=== PATIENT | female | born 1970 | race Caucasian/White ===

== ENCOUNTER 2018-06-14 11:07 | Emergency (ER) | payer BC ==
[~2018-06-14] VITALS: Ht 157.5 cm; Wt 47.2 kg
[~2018-06-14 11:07] MED LIST: Cipro PO; Vicodin,Norco 5/325 PO
[2018-06-14 12:10] LABS: HEMATOCRIT 37.3 % (36.0-46.0); HEMOGLOBIN 12.8 G/DL (11.9-15.5); MCH 30.8 PG (29.0-34.0); MCHC 34.3 G/DL (30.0-36.0); MCV 89.7 FL (83-99); PLATELET COUNT 198 K/uL (156-360); RBC DIS.WIDTH-CV 12.2 % (11.8-14.6); RBC DIS.WIDTH-SD 39.9 % (39-53); RED BLOOD COUNT 4.16 M/uL (3.80-5.20); WHITE BLOOD COUNT 10.2 K/uL (4.1-10.2)
[2018-06-14 12:23] LABS: CHLORIDE 107 mEq/L (99-109); POTASSIUM 3.7 mEq/L (3.7-5.4); SODIUM 142 mEq/L (136-147)
[2018-06-14 12:24] LABS: GLUCOSE 143 mg/dL (70-99)
[2018-06-14 12:28] LABS: CREATININE 0.9 mg/dL (0.6-1.3); GFR ESTIMATE (CALCULATED) > 59 mL/min/
[2018-06-14 12:29] LABS: UREA NITROGEN (BUN) 10 mg/dL (9-23)
[2018-06-14 12:36] LABS: QUANTITATIVE HCG < 4.0 MIU/ML
[2018-06-14 14:10] LABS: APPEARANCE CLEAR ((CLEAR)); BILIRUBIN NEGATIVE; BLOOD MODERATE; COLOR YELLOW ((YELLOW)); GLUCOSE (STRIP) NEGATIVE; KETONES 20; LEUKOCYTES NEGATIVE; NITRITE NEGATIVE; PROTEIN (STRIP) NEGATIVE; SPECIFIC GRAVITY 1.019 (1.000-1.030)
[2018-06-14 14:14] LABS: BACTERIA RARE /HPF; EPITHELIAL CELLS RARE /HPF; HYALINE CASTS 0-5 /LPF; MUCUS 2+ /LPF; RED BLOOD CELLS 30-40 /HPF (0-5); UCUL ADDED? NO; WHITE BLOOD CELLS 0-5 /HPF (0-5)
[2018-06-14] MEDS ORDERED: MOTRIN600 MG PO (14:38)
[2018-06-14] MEDS ORDERED: ZOFRAN ODT4 MG PO (14:38)
[2018-06-14] MEDS ORDERED: PERCOCET 5/31 TABLET PO (14:38)
[2018-06-14] MEDS ORDERED: FLOMAX0.4 MG PO (14:38)
[2018-06-14 14:54] VITALS: BP 106/58
== END 2018-06-14 15:44 | disposition home or self-care (01) ==
LOC: EME 11:07
DX: N23 Unspecified renal colic (principal); N13.1 Hydronephrosis with ureteral stricture, not elsewhere classified; K63.9 Disease of intestine, unspecified; K21.9 Gastro-esophageal reflux disease without esophagitis; Z79.891 Long term (current) use of opiate analgesic; Z87.442 Personal history of urinary calculi; Z98.890 Other specified postprocedural states
CPT/HCPCS: 74176; 80048; 81003; 84702; 85027; 99281; 99284; J1885; J2270; J2405; J3010; J7030